=== PATIENT | female | born 1955 | race Caucasian/White ===

== ENCOUNTER → 2017-12-20 | Outpatient (CLI) | payer BC ==
[~2017-12-20] MED LIST: ACET325 PO; CALCIUM CITRATE; CHOL10002; CYAN100 PO; DABI150C; FISH1000 PO; FLAX PO; GLUC500 PO; METO50 PO; NAPR220 PO; TRAM50 PO; Toprol Xl25 MG PO; Vitamin B Comple1 EA PO
== END | disposition home or self-care (01) ==
LOC: LAB EV 17:13 → LAB SHORT 17:13
DX: R30.0 Dysuria (principal)
CPT/HCPCS: 87086

== ENCOUNTER → 2017-12-20 | Outpatient (CLI) | payer BC ==
[2017-12-21 11:22] LABS: Candida species (DNA Probe) Negative (NEGATIVE); G. vaginalis (DNA Probe) Negative (NEGATIVE); T. vaginalis (DNA Probe) Negative (NEGATIVE)
== END | disposition home or self-care (01) ==
LOC: LAB EV 17:31 → LAB SHORT 17:31
PROVIDERS: Physician Assistant
DX: N76.0 Acute vaginitis (principal)
CPT/HCPCS: 87480; 87510; 87660

== ENCOUNTER 2020-07-15 11:13 | Day surgery (SDC) | payer BC ==
[~2020-07-15] VITALS: Ht 162.6 cm; Wt 67.5 kg
[~2020-07-15 11:13] MED LIST changes: +ATEN50 PO; +PROG100 PO
== END 2020-07-15 13:51 | disposition home or self-care (01) ==
LOC: ORSCSDS 11:13
PROVIDERS: Internal Medicine Gastroenterology
PROC: 0DJD8ZZ Inspection of Lower Intestinal Tract, Via Natural or Artificial Opening Endoscopic (ICD-10-PCS; principal; 2020-07-15 12:15)
DX: Z12.11 Encounter for screening for malignant neoplasm of colon (principal); Q43.8 Other specified congenital malformations of intestine; I10 Essential (primary) hypertension; I48.91 Unspecified atrial fibrillation; Z79.899 Other long term (current) drug therapy
CPT/HCPCS: J2704; J7120

== ENCOUNTER → 2021-01-04 | Outpatient (CLI) | payer BC ==
[2021-01-04 08:51] LABS: BASOPHILS ABSOLUTE AUTO 0.07 K/mm3 (0.00-0.23); BASOPHILS PERCENT AUTO 1 % (0-2); EOSINOPHILS ABSOLUTE AUTO 0.22 K/mm3 (0.00-0.68); EOSINOPHILS PERCENT AUTO 3 % (0-6); Hemoglobin 15.6 g/dL (11.5-16.0); IMMATURE GRAN ABSOLUTE AUTO 0.02 K/mm3 (0.00-0.10); IMMATURE GRAN PERCENT AUTO 0 % (0-1); LYMPHOCYTES ABSOLUTE AUTO 1.65 K/mm3 (0.84-5.20); LYMPHOCYTES PERCENT AUTO 23 % (21-46); MONOCYTES ABSOLUTE AUTO 0.66 K/mm3 (0.16-1.47); MONOCYTES PERCENT AUTO 9 % (4-13); Mean Corpuscular HGB 30.8 pg (26.0-34.0); Mean Corpuscular HGB Conc 34.7 g/dL (31.5-36.5); Mean Corpuscular Volume 89 fL (80-100); Mean Platelet Volume 9.7 fL (9.1-12.4); NEUTROPHILS ABSOLUTE AUTO 4.47 K/mm3 (1.96-9.15); NEUTROPHILS PERCENT AUTO 63 % (41-73); Platelet Count 304 K/mm3 (150-400); RDW Coefficient Variation 11.9 % (11.7-14.2); RDW Standard Deviation 38.5 fL (35.1-46.3); Red Blood Cell Count 5.06 M/mm3 (3.80-5.20); White Blood Cell Count 7.09 K/mm3 (4.00-11.30)
[2021-01-04 09:09] LABS: Alanine Aminotransfer (ALT/SGP 28 U/L (12-78); Albumin/Globulin Ratio 1.3 (0.8-1.8); Alk Phos 59 U/L (40-126); Anion Gap 9 mmol/L (6-16); Aspartate Aminotrans (AST/SGOT 21 U/L (12-37); Blood Urea Nitrogen 10 mg/dL (8-24); Bun/Creatinine Ratio 11.2 (12.0-20.0); CO2, Blood 27 mmol/L (21-32); Calcium, Blood 8.6 mg/dL (8.5-10.1); Chloride, Blood 100 mmol/L (98-108); Creatinine, Blood 0.89 mg/dL (0.40-1.00); Globulin, Blood 3.2 g/dL (2.2-4.0); Glomerular Filtration Rate >60 (60-); Glucose, Blood 90 mg/dL (70-99); Potassium, Blood 3.8 mmol/L (3.5-5.5); Sodium, Blood 136 mmol/L (136-145); Thyroid Stimulating Hormone 1.368 uIU/mL (0.360-4.800); Total Protein, Blood 7.2 g/dL (6.4-8.2)
[2021-01-04 09:32] LABS: Troponin I <0.017 ng/mL (0.000-0.040)
== END | disposition home or self-care (01) ==
LOC: LAB 08:45 → LAB SHORT 08:45
PROVIDERS: Physician Assistant
DX: I48.91 Unspecified atrial fibrillation (principal)
CPT/HCPCS: 80053; 84443; 84484; 85025

== ENCOUNTER → 2021-07-26 | Outpatient (CLI) | payer BC | END | disposition home or self-care (01) | LOC: LAB SHORT 09:25 | DX: N39.0 Urinary tract infection, site not specified (principal) | CPT/HCPCS: 87086 ==

== ENCOUNTER → 2023-02-23 | Outpatient (CLI) | payer MEDICARE, OTHER ==
[2023-02-23 14:16] LABS: Candida species (DNA Probe) Negative (NEGATIVE); G. vaginalis (DNA Probe) Negative (NEGATIVE); T. vaginalis (DNA Probe) Negative (NEGATIVE)
== END | disposition home or self-care (01) ==
LOC: LAB 11:17 → LAB SHORT 11:17
PROVIDERS: Obstetrics & Gynecology
DX: N76.0 Acute vaginitis (principal)
CPT/HCPCS: 87480; 87510; 87660

== ENCOUNTER → 2023-05-29 | Outpatient (CLI) | payer MEDICARE, OTHER ==
[2023-05-29 12:27] LABS: BASOPHILS ABSOLUTE AUTO 0.07 K/mm3 (0.00-0.23); BASOPHILS PERCENT AUTO 1 % (0-2); EOSINOPHILS ABSOLUTE AUTO 0.18 K/mm3 (0.00-0.68); EOSINOPHILS PERCENT AUTO 2 % (0-6); Hematocrit 44.6 % (33.0-51.0); Hemoglobin 15.4 g/dL (11.5-16.0); IMMATURE GRAN ABSOLUTE AUTO 0.02 K/mm3 (0.00-0.10); IMMATURE GRAN PERCENT AUTO 0 % (0-1); LYMPHOCYTES ABSOLUTE AUTO 2.01 K/mm3 (0.84-5.20); LYMPHOCYTES PERCENT AUTO 25 % (21-46); MONOCYTES ABSOLUTE AUTO 0.76 K/mm3 (0.16-1.47); MONOCYTES PERCENT AUTO 10 % (4-13); Mean Corpuscular HGB 30.4 pg (26.0-34.0); Mean Corpuscular HGB Conc 34.5 g/dL (31.5-36.5); Mean Corpuscular Volume 88 fL (80-100); NEUTROPHILS ABSOLUTE AUTO 4.86 K/mm3 (1.96-9.15); NEUTROPHILS PERCENT AUTO 62 % (41-73); Platelet Count 347 K/mm3 (150-400); RDW Coefficient Variation 12.3 % (11.7-14.2); RDW Standard Deviation 39.1 fL (35.1-46.3); Red Blood Cell Count 5.07 M/mm3 (3.80-5.20)
[2023-05-29 12:48] LABS: Bun/Creatinine Ratio 17.1 (12.0-20.0); Calcium, Blood 9.3 mg/dL (8.5-10.1); Creatinine, Blood 0.82 mg/dL (0.40-1.00); Potassium, Blood 4.6 mmol/L (3.5-5.5); Thyroid Stimulating Hormone 1.598 uIU/mL (0.360-4.800)
== END | disposition home or self-care (01) ==
LOC: LAB SHORT 12:22 → LAB 12:22
PROVIDERS: Family Medicine
DX: I48.0 Paroxysmal atrial fibrillation (principal); R06.00 Dyspnea, unspecified
CPT/HCPCS: 80048; 83880; 84443; 84484; 85025

== ENCOUNTER 2025-03-27 10:47 | Day surgery (SDC) | payer MEDICARE, OTHER ==
[~2025-03-27] VITALS: Ht 162.6 cm; Wt 66.7 kg
[2025-03-27] VITALS (15 sets, daily range): BP systolic 90–158; BP diastolic 50–99
[~2025-03-27 10:47] MED LIST changes: +COQ1050 MG PO; +ELIQUIS5 M2 PO; +ONDA4 PO; +Prinivil10 MG PO; +QUERCETIN500 MG PO
--- NOTE | 2025-03-27 11:47 | NUR ---
PRE OP NOTE PT A&OX4, BREATHING RA, NO COMPLAINTS. GLASSES SENT TO PACU. Ambulatory in Day Surgery Patient confirms NPO status and agrees with scheduled surgery. Pre-Op teaching done. Pt verbalizes understanding.
[2025-03-27] MEDS ORDERED: Rocuronium Bromide 10 MG/ML 5ML Injection IV ONE ×2 (12:12→12:52)
[2025-03-27] MEDS ORDERED: Midazolam HCl 1MG / ML 2ML Vial ONE (12:13)
[2025-03-27] MEDS ORDERED: Dexamethasone Sod Phos 10 MG/ML 1ML VIAL ONE (12:47)
[2025-03-27] MEDS ORDERED: Ondansetron HCl 2 MG / ML 2ML Vial ONE (12:47)
[2025-03-27] MEDS ORDERED: FentaNYL Citrate 50 MCG/ML 2 ML Injection ONE (12:52)
[2025-03-27] MEDS ORDERED: Lidocaine 1%-Epineph 1:100000 20 ML MDV ONE (12:55)
[2025-03-27] MEDS ORDERED: Ketorolac Tromethamine 30mg Vial ONE (13:21)
[2025-03-27] MEDS ORDERED: Sugammadex Sodium 200 MG/2ML SDV (100 MG/ML) ONE (13:21)
[2025-03-27] MEDS ORDERED: FentaNYL Citrate 50 MCG/ML 2 ML Injection IV PRN ×3 (13:55→14:45)
[2025-03-27] MEDS ORDERED: HYDROmorphone HCl/Pf 1MG SYR IV PRN ×2 (13:55→14:00)
[2025-03-27] MEDS ORDERED: Ondansetron HCl 2 MG / ML 2ML Vial IV PRN ×2 (14:00→14:45)
[2025-03-27] MEDS ORDERED: Morphine Sulfate 4 MG/1 ML Injection IV PRN (14:40)
--- NOTE | 2025-03-27 15:10 | NUR ---
POST-OP PATIENT TO ROOM 213 @ 1430, AOX4, DROWSY. VSS, ON RA. WHITNEY IN PLACE DRAINING TO GRAVITY, ORDERS TO DC AFTER [address] C/D/I. RESTING AT THIS TIME. CALL LIGHT IN REACH.
[2025-03-27] MEDS ORDERED: Ketorolac Tromethamine 30mg Vial IV SCH (18:00)
[2025-03-27] MEDS ORDERED: FLU VACC TS2025(65UP)/MF59C/PF 45 MCG/0.5 ML SYRINGE IM SCH (18:00)
--- NOTE | 2025-03-27 21:59 | NUR ---
PT ABLE TO GET UP WITH STANDBY ASSIST AND VOID 300 ML OF URINE FOR THE FIRST TIME SINCE SURGERY. POST VOID BLADDER SCAN OF [address] LEON, PT OK TO DISCHARGE AFTER VOIDING IF POST VOID SCAN <100 ML.
--- NOTE | 2025-03-27 22:51 | NUR ---
DISCHARGE PT HAS MET CRITERIA FOR DC PER DR LEON. IV REMOVED AND PERSONAL BELONGINGS GATHERED AND GIVEN TO PT. PT'S FRIEND HERE TO [employer] PT AND TAKE HER HOME. PT TAKEN TO CAR VIA WHEELCHAIR WITH NO ISSUE.
== END 2025-03-27 22:45 | disposition home or self-care (01) ==
LOC: ORSCMMR 10:47 → ORD 12:30 → SURS 14:34 → ORSCMMR 22:45
PROVIDERS: Obstetrics & Gynecology
PROC: 0JQC0ZZ Repair Pelvic Region Subcutaneous Tissue and Fascia, Open Approach (ICD-10-PCS; principal; 2025-03-27 12:30)
DX: N81.11 Cystocele, midline (principal); I48.0 Paroxysmal atrial fibrillation; Z79.01 Long term (current) use of anticoagulants; I10 Essential (primary) hypertension; D50.9 Iron deficiency anemia, unspecified; F41.9 Anxiety disorder, unspecified; Z79.899 Other long term (current) drug therapy
CPT/HCPCS: A9270; J1100; J1885; J2250; J2405; J2704; J3010; J7120